=== PATIENT | female | born 1950 | race Caucasian/White ===

== ENCOUNTER → 2020-09-23 | Outpatient (CLI) | payer MEDICARE ==
--- NOTE | 2020-09-23 16:51 | REP ---
INDICATION: UNILAT SMALL KIDNEY, CKD STAGE 3B. COMPARISON: None. TECHNIQUE/RADIOTRACER AND DOSE: Following the intravenous administration of 8.8 mCi technetium 99 M Mag 3, flow and delayed function images are performed in the posterior projection. Imaging is performed for 30 minutes. FINDINGS: There is a greater degree of perfusion of right kidney compared to the left. There is a greater degree of parenchymal uptake on the right than on the left with apparent left renal atrophy. There is bilateral excretion and cortical washout with no evidence of hydronephrosis. Split function is 27.2% on the left and 72.8% on the right. Time to peak and T1/2 is normal bilaterally, T1/2 on the left is 7.6 minutes and on the right 7.7 minutes. Renal function curve of the left kidney is very low amplitude with a downward slope. There is a normal renal function curve on the right. There is mild postvoid residual in the urinary bladder after voiding. IMPRESSION: Left renal atrophy with greater degree of split function on the right compared to the left. No evidence of hydronephrosis bilaterally. <Electronically signed by Duane Diane > 09/23/20 0330
== END ==
LOC: M RAD 09:53
PROVIDERS: ATTEND Internal Medicine Nephrology
DX: N27.0 Small kidney, unilateral (principal); N18.32 Chronic kidney disease, stage 3b
CPT/HCPCS: 78707; A9562

== ENCOUNTER → 2021-04-25 | Outpatient (REF) | payer MEDICARE | LOC: M LAB REF 12:51 | PROVIDERS: ATTEND Internal Medicine Nephrology | DX: N18.31 Chronic kidney disease, stage 3a (principal); E83.42 Hypomagnesemia ==

== ENCOUNTER → 2021-06-20 | Outpatient (REF) | payer MEDICARE ==
[2021-06-20 17:48] LABS: PERCENT SATURATION 21.7 % (13.2-45.0)
== END ==
LOC: M LAB REF 16:23
PROVIDERS: ATTEND Internal Medicine
DX: D64.9 Anemia, unspecified (principal)

== ENCOUNTER → 2022-04-19 | Outpatient (CLI) | payer MEDICARE, OTHER ==
[~2022-04-19] MED LIST: LISI20TA35 PO; METH25TAB PO; ROSU10TA6 PO
== END ==
LOC: M LABSMTC 12:02
PROVIDERS: ATTEND Anesthesiology
DX: Z01.812 Encounter for preprocedural laboratory examination (principal); Z20.822 Contact with and (suspected) exposure to COVID-19

== ENCOUNTER 2022-04-22 11:03 | Day surgery (SDC) | payer OTHER ==
[~2022-04-22] VITALS: Ht 152.4 cm; Wt 78.2 kg
[~2022-04-22 11:03] MED LIST changes: +NS 1,000 ML IV ONE
[2022-04-22] MEDS ORDERED: propofoL 200 MG/20 ML VIAL As Ordered ONE ×2 (11:47→12:01)
[2022-04-22] MEDS ORDERED: LIDOCAINE 2% 100MG/5ML SDV (FOR ANES.) As Ordered ONE (11:47)
[2022-04-22 12:25] VITALS: BP 138/61
== END 2022-04-22 12:33 | disposition home or self-care (01) ==
LOC: M OPP 11:03
PROVIDERS: ATTEND Internal Medicine Gastroenterology
DX: Z12.11 Encounter for screening for malignant neoplasm of colon (principal); D12.6 Benign neoplasm of colon, unspecified; K64.0 First degree hemorrhoids; K57.30 Diverticulosis of large intestine without perforation or abscess without bleeding; I12.9 Hypertensive chronic kidney disease with stage 1 through stage 4 chronic kidney disease, or unspecified chronic kidney disease; E78.00 Pure hypercholesterolemia, unspecified; E03.9 Hypothyroidism, unspecified; N18.30 Chronic kidney disease, stage 3 unspecified; Z79.2 Long term (current) use of antibiotics; Z79.899 Other long term (current) drug therapy

== ENCOUNTER → 2022-12-04 | Outpatient (REF) | payer OTHER ==
[~2022-12-04] MED LIST changes: -NS 1,000 ML IV ONE
[2022-12-04 19:20] LABS: BACTERIA, URINE AUTO NEGATIVE (NEGATIVE); RBC, URINE AUTO 1 /HPF (0-3); SQUAMOUS EPITHELIAL CELL UR AU 0 /HPF (0-6); WBC, URINE AUTO 1 /HPF (0-3)
== END ==
LOC: M LAB REF 16:52
PROVIDERS: ATTEND Internal Medicine Nephrology
DX: N18.31 Chronic kidney disease, stage 3a (principal)

== ENCOUNTER → 2025-05-04 | Outpatient (REF) | payer OTHER ==
[~2025-05-04] MED LIST changes: +METH-1386 PO; -METH25TAB PO; -ROSU10TA6 PO; +ROSU10TA90 PO
== END ==
LOC: M LAB REF 14:37
PROVIDERS: ATTEND Internal Medicine
DX: Z11.9 Encounter for screening for infectious and parasitic diseases, unspecified (principal)